=== PATIENT | male | born 1960 | race Two or more races ===

== ENCOUNTER 2022-05-14 20:56 | Inpatient (IN) | payer BC, OTHER ==
[~2022-05-14] VITALS: Ht 157.5 cm; Wt 82.0 kg
[2022-05-14 21:57] LABS: Basophils # (auto) 0.3 10 ^3/uL (0-0.2); Basophils % (auto) 3.2 % (0.0-2.0); Eosinophils # (auto) 0.3 10 ^3/uL (0-0.8); Eosinophils % (auto) 3.3 % (0.0-7.0); Hematocrit 42.4 % (41.0-53.0); Hemoglobin 14.5 g/dL (13.5-17.5); Lymphocytes # (auto) 1.7 10 ^3/uL (0.4-5.4); Lymphocytes % (auto) 21.5 % (10.0-50.0); Monocytes # (auto) 0.8 10 ^3/uL (0-1.3); Monocytes % (auto) 9.4 % (0.0-12.0); Neutrophils # (auto) 5.1 10 ^3/uL (1.6-8.6); Neutrophils % (auto) 62.6 % (37.0-80.0); Nucleated Red Blood Cells % 0.1 %; Red Blood Cells 4.92 10^6/uL (4.5-5.90); White Blood Cell 8.1 10^3/uL (4.4-10.8)
[2022-05-14 21:58] LABS: Mean Corpuscular Hemoglobin 29.5 pg (28.0-32.0); Mean Corpuscular Hgb Conc. 34.2 g/dL (32.0-36.0); Mean Corpuscular Volume 86.2 fL (80.0-100.0); Red Cell Distribution Width 13.9 % (11.8-14.3)
[2022-05-14 22:11] LABS: Albumin 4.1 g/dL (3.4-5.0); BUN/Creatinine Ratio 15.5; Calcium 9.5 mg/dL (8.5-10.1); Potassium 4.2 mmol/L (3.5-5.1)
[2022-05-14 22:14] LABS: Bilirubin, Total 0.4 mg/dL (0.2-1.0); Total Protein 7.8 g/dL (6.4-8.2)
[2022-05-14 23:03] LABS: INR 0.99 (0.9-1.15); Partial Thromboplastin Time 27.5 sec (24.6-33.4)
[2022-05-15] MEDS ORDERED: ACETAMINOPHEN 325 MG TAB PO PRN (04:30)
[2022-05-15] MEDS ORDERED: LORazepam 0.5 MG TAB PO PRN (04:30)
[2022-05-15] MEDS ORDERED: ZOLPIDEM TARTRATE 5 MG TAB PO PRN (04:30)
[2022-05-15] MEDS ORDERED: ONDANSETRON HCL 4 MG/2 ML VIAL IV PRN (04:30)
[2022-05-15] MEDS ORDERED: MAALOX PLUS or MAALOX 30 ML PO ONE (04:30)
[2022-05-15] MEDS ORDERED: MORPHINE SULFATE 4 MG/ML SYR/VIAL IV PRN (04:30)
[2022-05-15] MEDS ORDERED: NITROGLYCERIN 0.4 MG SL TAB SL PRN (04:30)
[2022-05-15] MEDS: SODIUM CHLORIDE 0.9% 1,000 ML IV SCH (05:44)
[2022-05-15 08:20] LABS: Basophils # (auto) 0.1 10 ^3/uL (0-0.2); Basophils % (auto) 0.8 % (0.0-2.0); Eosinophils # (auto) 0.2 10 ^3/uL (0-0.8); Eosinophils % (auto) 2.7 % (0.0-7.0); Hematocrit 41.2 % (41.0-53.0); Hemoglobin 13.9 g/dL (13.5-17.5); Lymphocytes # (auto) 1.8 10 ^3/uL (0.4-5.4); Lymphocytes % (auto) 21.1 % (10.0-50.0); Mean Corpuscular Hemoglobin 28.9 pg (28.0-32.0); Mean Corpuscular Hgb Conc. 33.7 g/dL (32.0-36.0); Mean Corpuscular Volume 85.7 fL (80.0-100.0); Monocytes # (auto) 0.8 10 ^3/uL (0-1.3); Neutrophils # (auto) 5.8 10 ^3/uL (1.6-8.6); Neutrophils % (auto) 66.4 % (37.0-80.0); Nucleated Red Blood Cells % 0.2 %; Red Blood Cells 4.81 10^6/uL (4.5-5.90); Red Cell Distribution Width 13.6 % (11.8-14.3); White Blood Cell 8.7 10^3/uL (4.4-10.8)
[2022-05-15 08:32] LABS: Calcium 8.9 mg/dL (8.5-10.1); Potassium 4.4 mmol/L (3.5-5.1)
[2022-05-15 08:34] LABS: BUN/Creatinine Ratio 19.3
[2022-05-15] MEDS: DOCUSATE SOD 100 MG CAP PO SCH (09:27)
[2022-05-15] MEDS: ASPirin 81 mg TAB PO SCH (09:27)
[2022-05-15] MEDS: ENOXAPARIN SOD 80 MG/0.8ML SYRINGE SC SCH ×2 (09:28→22:06)
[2022-05-15] MEDS: METOPROLOL TARTRATE 25 MG TAB PO SCH ×2 (09:32→22:08)
[2022-05-15] MEDS ORDERED: LISINOPRIL 5 MG TAB PO SCH (10:00)
[2022-05-15] MEDS ORDERED: CLOPIDOGREL BISULFATE 75 MG TAB PO SCH (10:00)
[2022-05-15 13:33] LABS: Basophils # (auto) 0 10 ^3/uL (0-0.2); Basophils % (auto) 0.6 % (0.0-2.0); Eosinophils # (auto) 0.2 10 ^3/uL (0-0.8); Eosinophils % (auto) 2.9 % (0.0-7.0); Hematocrit 40.1 % (41.0-53.0); Hemoglobin 13.3 g/dL (13.5-17.5); Lymphocytes # (auto) 1.8 10 ^3/uL (0.4-5.4); Lymphocytes % (auto) 27.2 % (10.0-50.0); Mean Corpuscular Hemoglobin 28.4 pg (28.0-32.0); Mean Corpuscular Hgb Conc. 33.1 g/dL (32.0-36.0); Mean Corpuscular Volume 85.8 fL (80.0-100.0); Monocytes # (auto) 0.7 10 ^3/uL (0-1.3); Monocytes % (auto) 10.7 % (0.0-12.0); Neutrophils # (auto) 3.9 10 ^3/uL (1.6-8.6); Neutrophils % (auto) 58.6 % (37.0-80.0); Nucleated Red Blood Cells % 0.1 %; Red Blood Cells 4.67 10^6/uL (4.5-5.90); Red Cell Distribution Width 13.9 % (11.8-14.3); White Blood Cell 6.6 10^3/uL (4.4-10.8)
[2022-05-15 13:53] LABS: Calcium 8.8 mg/dL (8.5-10.1); Potassium 3.9 mmol/L (3.5-5.1)
[2022-05-15 13:56] LABS: BUN/Creatinine Ratio 15.8
[2022-05-15] MEDS: PANTOPRAZOLE 40 MG/10 ML VIAL INJ IV SCH (22:06)
[2022-05-15] MEDS: ATORVASTATIN 20 MG TAB PO SCH (22:06)
[2022-05-16] MEDS: SODIUM CHLORIDE 0.9% 1,000 ML IV SCH (04:36)
[2022-05-16 10:20] VITALS: BP 120/78
[2022-05-16] MEDS: PANTOPRAZOLE 40 MG/10 ML VIAL INJ IV SCH (11:03)
[2022-05-16] MEDS: ASPirin 81 mg TAB PO SCH (11:03)
[2022-05-16] MEDS: DOCUSATE SOD 100 MG CAP PO SCH (11:05)
[2022-05-16 11:11] VITALS: BP 107/65
[2022-05-16 12:46] VITALS: BP 121/64
[2022-05-16] MEDS: ATORVASTATIN 20 MG TAB PO SCH (21:43)
[2022-05-17 05:00] VITALS: BP 103/69
[2022-05-17 06:46] LABS: Basophils # (auto) 0.1 10 ^3/uL (0-0.2); Basophils % (auto) 2.1 % (0.0-2.0); Eosinophils # (auto) 0.3 10 ^3/uL (0-0.8); Eosinophils % (auto) 5.2 % (0.0-7.0); Hematocrit 42.2 % (41.0-53.0); Hemoglobin 14.6 g/dL (13.5-17.5); Lymphocytes # (auto) 1.7 10 ^3/uL (0.4-5.4); Lymphocytes % (auto) 26.8 % (10.0-50.0); Mean Corpuscular Hemoglobin 29.5 pg (28.0-32.0); Mean Corpuscular Hgb Conc. 34.6 g/dL (32.0-36.0); Mean Corpuscular Volume 85.4 fL (80.0-100.0); Monocytes # (auto) 0.6 10 ^3/uL (0-1.3); Monocytes % (auto) 10.4 % (0.0-12.0); Neutrophils # (auto) 3.4 10 ^3/uL (1.6-8.6); Neutrophils % (auto) 55.5 % (37.0-80.0); Nucleated Red Blood Cells % 0.1 %; Red Blood Cells 4.94 10^6/uL (4.5-5.90); Red Cell Distribution Width 14.1 % (11.8-14.3); White Blood Cell 6.2 10^3/uL (4.4-10.8)
[2022-05-17 06:58] LABS: Potassium 4.5 mmol/L (3.5-5.1)
[2022-05-17 07:00] LABS: BUN/Creatinine Ratio 17.8
[2022-05-17 08:00] VITALS: BP_SYST 112; BP_SYST 99; BP_DIAS 68; BP_DIAS 69
[2022-05-17] MEDS: ENOXAPARIN SOD 40 MG/0.4 ML SYRINGE SC SCH (11:27)
[2022-05-17] MEDS: PANTOPRAZOLE 40 MG/10 ML VIAL INJ IV SCH (11:27)
[2022-05-17] MEDS: ASPirin 81 mg TAB PO SCH (11:28)
[2022-05-17] MEDS: DOCUSATE SOD 100 MG CAP PO SCH (11:28)
[2022-05-17 12:00] VITALS: BP 112/69
[2022-05-17 16:00] VITALS: BP 114/78
[2022-05-17] MEDS: ATORVASTATIN 20 MG TAB PO SCH (22:23)
[2022-05-17 23:38] VITALS: BP 106/63
[2022-05-18] VITALS (9 sets, daily range): BP systolic 96–122; BP diastolic 59–75
[2022-05-18 06:59] LABS: Basophils # (auto) 0.1 10 ^3/uL (0-0.2); Eosinophils # (auto) 0.3 10 ^3/uL (0-0.8); Eosinophils % (auto) 5.3 % (0.0-7.0); Hematocrit 43.6 % (41.0-53.0); Hemoglobin 14.2 g/dL (13.5-17.5); Lymphocytes # (auto) 1.6 10 ^3/uL (0.4-5.4); Lymphocytes % (auto) 30.4 % (10.0-50.0); Mean Corpuscular Hemoglobin 28.3 pg (28.0-32.0); Mean Corpuscular Hgb Conc. 32.5 g/dL (32.0-36.0); Mean Corpuscular Volume 87.1 fL (80.0-100.0); Monocytes # (auto) 0.6 10 ^3/uL (0-1.3); Monocytes % (auto) 11.2 % (0.0-12.0); Neutrophils # (auto) 2.8 10 ^3/uL (1.6-8.6); Neutrophils % (auto) 52.1 % (37.0-80.0); Red Cell Distribution Width 13.6 % (11.8-14.3); White Blood Cell 5.4 10^3/uL (4.4-10.8)
[2022-05-18 07:03] LABS: INR 1.04 (0.9-1.15); Partial Thromboplastin Time 29.3 sec (24.6-33.4)
[2022-05-18 07:05] LABS: Calcium 8.8 mg/dL (8.5-10.1); Potassium 4.5 mmol/L (3.5-5.1)
[2022-05-18 07:09] LABS: BUN/Creatinine Ratio 20.4
[2022-05-18] MEDS: PANTOPRAZOLE 40 MG/10 ML VIAL INJ IV SCH (09:44)
[2022-05-18] MEDS: ASPirin 81 mg TAB PO SCH (09:44)
[2022-05-18] MEDS: ENOXAPARIN SOD 40 MG/0.4 ML SYRINGE SC SCH (09:45)
[2022-05-18] MEDS: DOCUSATE SOD 100 MG CAP PO SCH (09:46)
[2022-05-18] MEDS ORDERED: LIDOCAINE 2%HCL (LOCAL ANESTH.) INJ 10ml MDV ONE (11:32)
[2022-05-18] MEDS ORDERED: VERAPAMIL 2.5MG/ML INJ 2ML VIAL IV ONE (11:34)
[2022-05-18] MEDS ORDERED: fentaNYL CITRATE 100 MCG/2 ML VL ONE (11:34)
[2022-05-18] MEDS ORDERED: ANGIOMAX 250 MG VIAL IV ONE (11:34)
[2022-05-18] MEDS ORDERED: SODIUM CHL 0.9% 0 ML ONE (11:35)
[2022-05-18] MEDS ORDERED: MIDAZOLAM HCL 2MG/2ML 2ml VIAL (1mg/ml) ONE (11:35)
[2022-05-18] MEDS ORDERED: IODIXANOL 320MG/ML 100ML BTL IV ONE (11:35)
[2022-05-18] MEDS ORDERED: HEPARIN SODIUM (PORCINE) 5000 UNITS/ML 1ML VIAL ONE (11:39)
[2022-05-18] MEDS ORDERED: MORPHINE SULFATE INJ 2 MG/ml SYRG IV PRN (12:00)
== END 2022-05-18 18:20 | disposition home or self-care (01) | DRG 287 ==
LOC: ER 20:59 → TELE 05-15 04:25 → TELE-CENTR 05-16 09:39
PROVIDERS: ADMIT Hospitalist; ATTEND Internal Medicine Pulmonary Disease
PROC: 4A023N7 Measurement of Cardiac Sampling and Pressure, Left Heart, Percutaneous Approach (ICD-10-PCS; principal; 2022-05-18)
PROC: B211YZZ Fluoroscopy of Multiple Coronary Arteries using Other Contrast (ICD-10-PCS; 2022-05-18)
PROC: B215YZZ Fluoroscopy of Left Heart using Other Contrast (ICD-10-PCS; 2022-05-18)
DX: R07.9 Chest pain, unspecified (principal); K80.20 Calculus of gallbladder without cholecystitis without obstruction; Z20.822 Contact with and (suspected) exposure to COVID-19; E66.01 Morbid (severe) obesity due to excess calories; Z68.30 Body mass index [BMI] 30.0-30.9, adult
CPT/HCPCS: 36415; 71045; 74176; 78452; 80048; 80053; 80061; 83036; 83690; 83880; 84443; 84484; 85025; 85610; 85730; 86850; 86900; 86901; 87426; 93005; 93017; 93306; 93458; 99152; C9113; G0378; J2001; J2250; Q9967